=== PATIENT | male | born 1990 | race Two or more races ===

== ENCOUNTER 2025-01-18 18:36 | Emergency (ER) | payer OTHER ==
[~2025-01-18] VITALS: Ht 188 cm; Wt 75.7 kg
[2025-01-18 19:02] VITALS: BP 144/72; TEMP 97.6; O2SAT 99
[2025-01-18] MEDS ORDERED: TDAP [DIPH/PERTUSSIS/TET] 0.5 ML VIAL IM ONE ×2 (19:17→19:30)
[2025-01-18] MEDS ORDERED: LIDOCAINE 1% INJ 50 ML MDV IJ ONE (19:17)
[2025-01-18] MEDS: LIDOCAINE HCL/PF 1% 30 ML VIAL TP ONE (19:27)
[2025-01-18] MEDS ORDERED: BACI28.433 TP (20:28)
[2025-01-18] MEDS ORDERED: IBUP-1490 PO (20:28)
[2025-01-18] MEDS ORDERED: BACITRACIN ZINC OINT PACKET 1 EA PACKET TP ONE (20:30)
== END 2025-01-18 21:41 | disposition home or self-care (01) ==
LOC: ER 18:58
DX: S61.213A Laceration without foreign body of left middle finger without damage to nail, initial encounter (principal); Z60.2 Problems related to living alone; W25.XXXA Contact with sharp glass, initial encounter; Y93.89 Activity, other specified; Y92.89 Other specified places as the place of occurrence of the external cause; Y99.0 Civilian activity done for income or pay
CPT/HCPCS: 12001; 73130; 99283; A6403; J3490; 90715

== ENCOUNTER 2025-01-28 13:40 | Emergency (ER) | payer OTHER ==
[~2025-01-28] VITALS: Ht 188 cm; Wt 77.1 kg
[~2025-01-28 13:40] MED LIST: BACI28.433 TP; IBUP-1490 PO
[2025-01-28 13:52] VITALS: BP 128/96; TEMP 98.1; O2SAT 99
== END 2025-01-28 14:11 | disposition home or self-care (01) ==
LOC: ER 13:44
DX: S61.213D Laceration without foreign body of left middle finger without damage to nail, subsequent encounter (principal); Z48.02 Encounter for removal of sutures; Z60.2 Problems related to living alone; X58.XXXD Exposure to other specified factors, subsequent encounter